=== PATIENT | female | born 1975 | race Caucasian/White ===

== ENCOUNTER 2021-10-24 23:22 | Observation (INO) | payer OTHER, SELFPAY ==
--- NOTE | ~2021-10-24 | CT_ITS ---
EXAMINATION: CT abdomen pelvis w con DATE: 10/25/2021 01:26 INDICATION: Right flank pain. Right lower quadrant abdominal pain. Fever. TECHNIQUE: Computed tomography (CT) of the abdomen and pelvis was performed with 100 mL Omnipaque 350 intravenous contrast. Automated exposure control and iterative reconstruction technique were employe d. The dose-length product was 1466.88 mGy-cm. COMPARISON: None. FINDINGS: The visualized portions of the lung bases demonstrate mild atelectasis on the right. No ple ural effusion. The heart size is normal. No pericardial effusion. There is a small sliding hiatal her becka. The liver demonstrates focal steatosis adjacent to the falciform ligament. There is mild splenom egaly. The pancreas, adrenal glands, and left kidney are normal. There is hypoenhancement in right ki dney, consistent with pyelonephritis. There is a 9 mm cyst versus abscess in right kidney. The append ix is normal. There are no dilated loops of bowel. There is wall thickening in the bladder, consisten t with cystitis. There are no pathologically enlarged lymph nodes. There is no free intraperitoneal f luid. There are fibroids in the uterus. There is severe lower lumbar spondylosis. There is mild thora cic spondylosis. IMPRESSION: 1. Acute right-sided pyelonephritis. 9 mm cyst versus abscess in right kidney. 2. Bladder wall thickening, consistent with cystitis. 3. Mild splenomegaly. Reviewed, dictated and finalized at location A.
[2021-10-24 23:29] VITALS: BP 121/85; PULSE 127; RESP 16; TEMP 37.1; O2SAT 100
[2021-10-24 23:49] LABS: Basophils Absolute Auto 0.1 K/mm3 (0.0-0.1); Basophils Percent Auto 0.5 % (0.2-1.2); Eosinophils Percent Auto 0.3 % (0-4.4); Hematocrit 34.3 % (37.0-47.0); Hemoglobin 10.8 g/dL (12.0-15.0); Immature Granulocyte Absolute 0.07 K/mm3 (0.00-0.031); Immature Granulocyte Percent A 0.7 % (0-0.5); Lymphocytes Absolute Auto 1.42 K/mm3 (0.9-3.2); Lymphocytes Percent Auto 13.5 % (18.3-44.2); Mean Corpuscular HGB Conc 31.5 g/dl (32-36); Mean Corpuscular Hemoglobin 24.6 pg (26-34); Mean Corpuscular Volume 78.1 fl (80-100); Mean Platelet Volume 10.1 fl (7.4-10.4); Monocytes Absolute Auto 1.4 K/mm3 (0.1-0.6); Monocytes Percent Auto 13.2 % (2.6-8.5); Neutrophils Absolute Auto 7.6 K/mm3 (1.3-6.7); Neutrophils Percent Auto 71.8 % (45.5-73.1); Platelet Count Result 342 k/mm3 (150-375); Red Blood Count 4.39 M/mm3 (4.2-5.4); Red Cell Distribution Width 17.2 % (11.5-14.5); White Blood Count 10.5 K/mm3 (4.5-10.0)
[2021-10-24 23:59] LABS: Alanine Aminotransferase 17 U/L (6-35); Albumin Level 3.8 g/dL (3.5-5.1); Alkaline Phosphatase 193 U/L (38-126); Anion Gap 13 mmol/L (8-16); Aspartate Amino Transferase 21 U/L (14-36); Bilirubin,Total 0.7 mg/dL (0.2-1.3); Blood Urea Nitrogen 15 mg/dL (7-17); Calcium 9.5 mg/dL (8.4-10.2); Carbon Dioxide 22 mmol/L (22-30); Chloride 96 mmol/L (98-107); Estimated CRCL calculation 98 ml/min; Estimated Glomerular Filt Rate > 60; Glucose 116 mg/dL (65-110); Potassium 3.4 mmol/L (3.4-5.0); Sodium 131 mmol/L (137-145)
[2021-10-25] LABS: Bacteria Urine 1+ /hpf; Mucus Urine Few /lpf; Squamous Epithelial Cell Urine Many /hpf (Few); WBC Urine >75 /hpf
[2021-10-25 00:13] LABS: Appearance Urine Clear (Clear); Bilirubin Urine 1+ (Negative); Blood Urine 1+ (Negative); Glucose Urine UA Negative (Negative); Ketones Urine Negative (Negative); Leukocyte Esterase Ur 3+ LEU/UL (Negative); Nitrate Urine Negative (Negative); Protein Urine 1+ mg/dL (Negative); Specific Grav Ur 1.015 (1.001-1.035)
[2021-10-25 00:14] LABS: Add Urine Microscopic? YES; Color Urine Dark Yellow (Yellow)
[2021-10-25 01:03] LABS: Lactic Acid Reflex 1.1 mmol/L (0.7-2.0)
[2021-10-25] MEDS: ONDANSETRON INJ 4 MG/2 ML VIAL IV PUSH (01:08)
[2021-10-25] MEDS: SODIUM CHLORIDE 0.9% IV 1,000 ML 999 ML IV CONT ×2 (01:09→02:33)
--- NOTE | 2021-10-25 02:09 | ED.FEMALEGU ---
HPI - Female Genitourinary General Chief complaint: Urogenital-Female Stated complaint: UTI,FLANK PAIN Time Seen by Provider: 10/25/21 00:14 History of Present Illness HPI Narrative: Patient is a 46-year-old female here for evaluation of right-sided low back pain for the past day. Patient states she is having urinary symptoms last week, including urgency and frequency. She did not take any antibiotics for this. Her urinary symptoms improved, but she states over the past several days, she has felt unwell, feverish, and has developed some right flank pain and nausea. Denies any vomiting, diarrhea, constipation. Related Data Allergies Allergy/AdvReac Type Severity Reaction Status Date / Time amoxicillin Allergy Unknown Unknown Verified 10/25/21 00:38 Penicillins Allergy Unknown Unknown Verified 10/25/21 00:38 Review of Systems Review of Systems: Gen.: Reports chills. Denies fevers Eyes: Denies eye pain or visual change ENT: Denies congestion Respiratory: Denies shortness of breath or cough CV: Denies chest pain or palpitations GI: Reports nausea. Denies abdominal pain emesis or diarrhea reports burning and urgency, resolved. Musculoskeletal: Reports right flank pain. Denies back pain or muscle pain Neuro: Denies numbness, tingling, weakness or focal weakness Skin: Denies rash Except as documented, all other systems reviewed and negative [facility] Family History Family History (Updated 11/19/13 @ 07:13 by DOCTOR UNKNOWN) Mother Hypertension Other Family history of malignant neoplasm Exam Narrative: APPEARANCE: Uncomfortable appearing Head: Normocephalic and atraumatic. EYES: PERRLA/EOMI, conjunctivae clear NOSE: No nasal drainage EARS: External ear normal in appearance THROAT: Oropharynx is clear. Mucous membranes are moist. NECK: Supple. No adenopathy, no masses. RESPIRATORY: Airway patent, respirations nonlabored. Clear to auscultation bilaterally, no rales, rhonchi, wheezing. CARDIOVASCULAR: tachycardic. Regular rhythm without murmurs, rubs, or gallops. ABDOMINAL: Right CVA tenderness. Normoactive bowel sounds. Soft, nondistended. No rebound tenderness or guarding. MUSCULOSKELETAL: Extremities are warm and well-perfused. Moves all extremities well. No edema. NEURO: Normal speech. No focal neurologic deficits. SKIN: Skin is warm and dry. No rashes. PSYCHIATRIC: Normal affect/mood. Course Vital Signs Vital signs: Vital Signs Temperature 98.7 F 10/24/21 23:29 Pulse Rate 127 H 10/24/21 23:29 Respiratory Rate 16 10/24/21 23:29 Blood Pressure 121/85 10/24/21 23:29 Pulse Oximetry 100 10/24/21 23:29 Temperature 98.6 F 10/25/21 02:29 Pulse Rate 109 H 10/25/21 02:35 Respiratory Rate 18 10/25/21 02:35 Blood Pressure 126/75 10/25/21 02:35 Pulse Oximetry 100 10/25/21 02:35 MDM - Female Genitourinary MDM Narrative Medical decision making narrative: 46 year old female here for evaluation of right flank pain preceeded by several days of urinary symptoms. She is tachycardic, vital signs otherwise normal; EKG is in sinus tach. She has right CVA tenderness on exam. She has a slight leukocytosis to 10.5, kidney function normal, evidence of UTI on UA with bacteria, WBCs, leuks. Negative lactic. CT scan with evidence of right sided pyelonephritis and cystitis. Given her tachycardia, blood cultures were obtained, she was given 2L fluids in the ED, and started on zosyn. spoke with dr. Montiel who agrees with plan for admission; will obs patient. Patient updated and agreeable to plan. Lab Data Result diagrams: 10/24/21 23:43 10/24/21 23:43 Labs: Lab Results 10/24/21 10/24/21 10/24/21 Range/Units 23:43 23:43 23:43 WBC 10.5 H (4.5-10.0) K/mm3 RBC 4.39 (4.2-5.4) M/mm3 Hgb 10.8 L (12.0-15.0) g/dL Hct 34.3 L (37.0-47.0) % MCV 78.1 L (80-100) fl MCH 24.6 L (26-34) pg MCHC 31.5 L (32-36) g/dl RDW 17.2 H
--- NOTE | 2021-10-25 02:18 | ECG_ITS ---
Measurements Intervals [place] Rate: 104 P: 39 OR: 160 QRS: 39 QRSD: 88 T: 44 QT: 326 QTc: 430 Interpretive Statements SINUS TACHYCARDIA BASELINE ARTIFACT NONSPECIFIC T-WAVE ABNORMALITY BORDERLINE ECG NO PREVIOUS ECG AVAILABLE FOR COMPARISON Electronically Signed On 10-25-2021 12:34:15 CDT by Pipe John M.D.
[2021-10-25 02:29] VITALS: TEMP 37
[2021-10-25 02:35] VITALS: BP 126/75; PULSE 109; RESP 18; O2SAT 100
[2021-10-25] MEDS: ACETAMINOPHEN 325 MG TABLET 650 MG PO (03:15)
[2021-10-25 04:07] LABS: SARS-CoV-2 RNA PCR Negative
[2021-10-25 04:36] VITALS: BP 119/66; PULSE 92; RESP 18; TEMP 36.4; O2SAT 100
[2021-10-25] MEDS: SODIUM CHLORIDE 0.9% IV 1,000 ML 150 ML IV CONT (04:56)
--- NOTE | 2021-10-25 08:26 | PC.NURSE ---
This patient, Demetria Santoro, was admitted to Medical Room 341-01. Patient/family oriented to hospital policies and general routines including ID bracelet, bed and alarms, visiting hours, pain management, procedures, bathroom and other care routines, personal items, smoking policy, room service/diet, and visiting hours. Information on how to activate the Rapid Response Team has been discussed. Patient/Family are encouraged to report perceived risks to care and to ask questions if they do not understand what they are told or what they should do. Patient was brought up on previous shift and day shift RN added an admission note.
--- NOTE | 2021-10-25 10:23 | PM.IMHP ---
H&P: HPI History of Present Illness Date/Time: 10/25/21 10:23 Chief Complaint: Right flank pain Narrative: Date of service: 10/25/2021 Demetria Santoro is a 46-year-old female with a history of depression, anxiety, overactive bladder, GERD, and recent asthma diagnosis who presented to the emergency department on 10/25/2021 with complaints of right-sided flank pain. Over the past week, she developed urinary frequency, dysuria, dark urine, and trouble emptying her bladder. She did not seek evaluation for this but was pretty convinced that she had a urinary tract infection. She felt that her symptoms started to improved but then about 2 days ago she developed a stabbing right-sided flank pain that was constant for several hours. This eventually subsided but she still noticed it if she took a deep breath or moved around. She began feeling achey and had a fever of 104.0 (though she states she took this immediately after being outside in the heat). She reports feeling dehydrated. She did have an episode of nausea and vomiting yesterday but reports this was after eating [employer]. She has not had any subsequent episodes of N/V and is now tolerating her diet. In the ED, she she was tachycardic with heart rate 127, she was afebrile, white blood cell count mildly elevated at 10.5, UA grossly abnormal, additional laboratory workup unremarkable, and CT of the abdomen/ pelvis showed acute right-sided pyelonephritis with 9 mm cyst vs abscess of the right kidney. she is being admitted to the hospitalist service for observation. Supervising physician for this history and physical is Dr. Mo James Review of Systems Review of Systems: All systems reviewed with pertinent positives and negatives as per HPI. Additionally, patient endorses heartburn which is very typical for her. She denies abdominal pain. She denies SOB or wheezing. No chest pain. [facility] Past Medical History Medical History (Updated 10/25/21 @ 10:54 by Janae Mosqueda PA-C) Anxiety Asthma Depression GERD (gastroesophageal reflux disease) Overactive bladder Tachyarrhythmia Tobacco abuse Surgical History Surgical History (Updated 10/25/21 @ 10:47 by Janae Mosqueda PA-C) History of History of tubal ligation Family History Family History (Updated 10/25/21 @ 10:48 by Janae Mosqueda PA-C) Mother Hypertension Father Hypertension Social History Social History (Updated 10/25/21 @ 10:51 by Janae Mosqueda PA-C) Social History: Ms. Santoro lives at home alone. She is independent in her daily activities. She has 3 adult children. She is on disability due to depression. Her primary care provider is Yanira Mendoza NP. She designates her mother, Gila, as her surrogate decision maker. She would like to be a full code. Smoking packs per day: 1 Smoking cigarettes per day: 20.0 Years smoked: 20 Smoking pack-years: 20.00 Smoking status: Current every day smoker Tobacco type: cigarettes Additional smoking assessment comments: Patient cut down to 1/2 ppd 6 months ago Alcohol intake: never Substance use: current Substance use type: marijuana Other substance usage details: 3 times weekly Living arrangements: alone Spiritual care concerns: No Meds Home Medications and Allergies Home Medications Medication Instructions Recorded Confirmed Type albuterol 18 g inhalation PRN 10/25/21 10/25/21 History amitriptyline 75 mg PO DAILY 10/25/21 10/25/21 History bupropion HCl 300 mg PO DAILY 10/25/21 10/25/21 History duloxetine 60 mg PO DAILY 10/25/21 10/25/21 History omeprazole 20 mg PO DAILY 10/25/21 10/25/21 History oxybutynin chloride 5 mg PO DAILY 10/25/21 10/25/21 History propranolol 10 mg PO DAILY 10/25/21 10/25/21 History Allergies Allergy/AdvReac Type Severity Reaction Status Date / Time amoxicillin Allergy Unknown Unknown Verified 10/25/21 00:38 Penicillins Allergy Unknown Unknown Verified 10/25/21 00:3
[2021-10-25 11:29] LABS: Hematocrit 31.2 % (37.0-47.0); Hemoglobin 9.5 g/dL (12.0-15.0); Mean Corpuscular HGB Conc 30.4 g/dl (32-36); Mean Corpuscular Hemoglobin 24.7 pg (26-34); Mean Platelet Volume 10.2 fl (7.4-10.4); Platelet Count Result 286 k/mm3 (150-375); Red Blood Count 3.85 M/mm3 (4.2-5.4); Red Cell Distribution Width 17.3 % (11.5-14.5); White Blood Count 6.1 K/mm3 (4.5-10.0)
[2021-10-25 14:36] VITALS: BP 117/60; PULSE 83; RESP 16; TEMP 36.8; O2SAT 100
[2021-10-25] MEDS: PANTOPRAZOLE 40 MG TABLET PO (20:50)
[2021-10-25] MEDS: DULoxetine HCL 60 MG CAPSULE.DR PO (20:50)
[2021-10-25] MEDS: PROPRANOLOL HCL 10 MG TABLET PO (20:51)
[2021-10-25] MEDS: buPROPion HCL XL (24 HR) 150 MG TABCR 300 MG PO (20:51)
[2021-10-25] MEDS: OXYBUTYNIN CHLORIDE 5 MG TABLET PO (20:51)
[2021-10-25] MEDS: AMITRIPTYLINE HCL 25 MG TABLET 75 MG PO (20:51)
[2021-10-25] MEDS: ACETAMINOPHEN 500 MG TABLET 1000 MG PO (21:31)
[2021-10-25 21:54] VITALS: BP 131/60; PULSE 108; RESP 16; TEMP 36.8; O2SAT 100
[2021-10-26] MEDS: CALCIUM CARBONATE (TUMS) 500 MG (200 MG ELEMENTAL) 400 MG PO (00:11)
[2021-10-26 00:51] LABS: Anion Gap 10 mmol/L (8-16); Blood Urea Nitrogen 14 mg/dL (7-17); Calcium 8.6 mg/dL (8.4-10.2); Carbon Dioxide 26 mmol/L (22-30); Chloride 102 mmol/L (98-107); Estimated CRCL calculation 98 ml/min; Estimated Glomerular Filt Rate > 60; Glucose 85 mg/dL (65-110); Potassium 3.2 mmol/L (3.4-5.0); Sodium 138 mmol/L (137-145)
[2021-10-26 05:50] VITALS: BP 123/78; PULSE 73; RESP 16; TEMP 36.7; O2SAT 100
[2021-10-26 06:32] LABS: Hematocrit 28.6 % (37.0-47.0); Hemoglobin 8.6 g/dL (12.0-15.0); Mean Corpuscular HGB Conc 30.1 g/dl (32-36); Mean Corpuscular Hemoglobin 24.6 pg (26-34); Mean Corpuscular Volume 81.7 fl (80-100); Mean Platelet Volume 10.4 fl (7.4-10.4); Platelet Count Result 266 k/mm3 (150-375); Red Cell Distribution Width 17.3 % (11.5-14.5); White Blood Count 6.7 K/mm3 (4.5-10.0)
[2021-10-26 06:42] LABS: Anion Gap 8 mmol/L (8-16); Blood Urea Nitrogen 13 mg/dL (7-17); Calcium 8.7 mg/dL (8.4-10.2); Carbon Dioxide 23 mmol/L (22-30); Chloride 101 mmol/L (98-107); Estimated CRCL calculation 98 ml/min; Estimated Glomerular Filt Rate > 60; Glucose 92 mg/dL (65-110); Potassium 3.2 mmol/L (3.4-5.0); Sodium 132 mmol/L (137-145)
[2021-10-26] MEDS: FLUTICASONE/SALMETEROL 115-21 MCG INHALER 1 PUFF 2 PUFF INHALATION ×2 (08:49→20:28)
[2021-10-26] MEDS: POTASSIUM CHLORIDE 20 MEQ PACKET (FOR LIQUID) 40 MEQ PO (09:13)
[2021-10-26] MEDS: ENOXAPARIN 40 MG/0.4 ML SYRINGE SUB-Q (09:13)
[2021-10-26 09:14] VITALS: PULSE 73
[2021-10-26] MEDS: PROPRANOLOL HCL 10 MG TABLET PO ×2 (09:14→18:19)
[2021-10-26 14:00] VITALS: BP 103/58; PULSE 74; RESP 18; TEMP 36.6; O2SAT 100
--- NOTE | 2021-10-26 15:42 | PM.IMPN ---
Progress Note: A&P Assessment and Plan (1) Pyelonephritis: Code(s): N12 - Tubulo-interstitial nephritis, not specified as acute or chronic Status: Acute Assessment and Plan: Patient presented with urinary symptoms and right-sided flank pain. CT of abdomen/pelvis showed acute right-sided pyelonephritis with 9 mm cyst vs abscess of the right kidney preliminary urine culture with growth of E coli. Final results and susceptibility report pending. Spoke with [facility]; anticipate susceptibility report will be available tomorrow morning. Plan for discharge on appropriate PO antibiotics. blood cultures pending continue IV Zosyn will need follow up imaging on resolution of infection to evaluate kidney findings. Spoke to RN (Stacy) at her PCP office today to facilitate outpatient follow-up (2) Tobacco abuse: Code(s): Z72.0 - Tobacco use Status: Acute Assessment and Plan: Patient smokes 1/2 ppd patient educated on importance of total tobacco cessation (3) Asthma: Code(s): J45.909 - Unspecified asthma, uncomplicated Status: Acute Assessment and Plan: No acute issues at this time rescue albuterol inhaler as needed resume home symbicort Subjective Date/time seen: 10/26/21 15:42 Interval history: Date of service: 10/26/2021 Demetria Santoro is a 46-year-old female with a history of depression, anxiety, overactive bladder, GERD, and recent asthma diagnosis. She feels better today. States her flank pain has resolved. Denies abdominal pain, nausea, vomiting, fever, or chills. Dysuria has resolved. States her urine is still a bit dark in color. Denies hematuria. Appetite is good. Denies diarrhea. No shortness of breath, wheezing, cough, chest pain. Review of Systems Review of Systems: All systems reviewed & are unremarkable except as noted in HPI and below Exam Narrative: General: well-nourished, well-appearing 46-year-old female, sitting up in bed, comfortable, NARD Neuro: awake, alert and oriented x4, speech clear, no focal neuro deficits noted HEENMT: normocephalic, atraumatic, EOMI, sclerae anicteric Respiratory: clear to auscultation bilaterally, nonlabored breathing Cardio: regular rate, regular rhythm with S1-S2 Abdomen: nondistended, normoactive bowel sounds, soft, nontender to palpation : No CVA tenderness Extremities: no edema, erythema, or tenderness to palpation Skin: no rashes or lesions, warm and dry Psych: appropriate mood and affect, judgment and insight intact Objective Data Vital Signs Vital Signs: Vital Signs - 24 hr 10/25/21 21:54 10/26/21 05:50 10/26/21 09:14 Temperature 98.2 F 98.1 F Pulse Rate 108 H 73 73 Respiratory Rate 16 16 Blood Pressure 131/60 123/78 Pulse Oximetry 100 100 Oxygen Delivery 10/26/21 08:00 10/26/21 14:00 Temperature 97.8 F Pulse Rate 74 Respiratory Rate 18 Blood Pressure 103/58 L Pulse Oximetry 100 Oxygen Delivery Room Air Intake/Output Intake/Output: Intake & Output 10/23/21 10/24/21 10/25/21 10/26/21 23:59 23:59 23:59 23:59 Intake Total 4240 630 Output Total 500 800 Balance 3740 -170 Meds/Results Medications: Active Medications Generic Name Dose Route Start Last Admin Trade Name Freq PRN Reason Stop Dose Admin Acetaminophen 325 mg 10/25/21 03:59 Acetaminophen 325 Mg Tablet PO Q6H PRN Mild Pain (1-3) or Fever Acetaminophen 1,000 mg 10/25/21 20:14 10/25/21 21:31 Acetaminophen 500 Mg Tablet PO 1,000 mg Q6H PRN Administration Mild Pain (1-3) or Fever Albuterol 2 puff 10/26/21 00:55 Albuterol Sulfate (*Sp) Aerosol 1 Puff INHALATION Q4-6H PRN Shortness Of Breath Amitriptyline HCl 75 mg 10/25/21 21:00 10/25/21 20:51 Amitriptyline Hcl 25 Mg Tablet PO 75 mg HS ENID Administration Bupropion HCl 300 mg 10/25/21 21:00 10/25/21 20:51 Bupropion Hcl Xl (24 Hr) 150 Mg Tabcr PO 3
[2021-10-26 18:19] VITALS: PULSE 74
[2021-10-26] MEDS: AMITRIPTYLINE HCL 25 MG TABLET 75 MG PO (19:59)
[2021-10-26] MEDS: PANTOPRAZOLE 40 MG TABLET PO (20:00)
[2021-10-26] MEDS: OXYBUTYNIN CHLORIDE 5 MG TABLET PO (20:00)
[2021-10-26] MEDS: DULoxetine HCL 60 MG CAPSULE.DR PO (20:00)
[2021-10-26] MEDS: buPROPion HCL XL (24 HR) 150 MG TABCR 300 MG PO (20:01)
[2021-10-26 20:26] VITALS: BP 118/64; PULSE 80; RESP 16; TEMP 36.6; O2SAT 99
[2021-10-26 20:30] VITALS: O2SAT 97
[2021-10-27 05:06] VITALS: BP 112/54; PULSE 73; RESP 16; TEMP 36.7; O2SAT 97
[2021-10-27 05:49] LABS: Hematocrit 29.2 % (37.0-47.0); Hemoglobin 8.7 g/dL (12.0-15.0); Mean Corpuscular HGB Conc 29.8 g/dl (32-36); Mean Corpuscular Hemoglobin 24.6 pg (26-34); Mean Corpuscular Volume 82.7 fl (80-100); Mean Platelet Volume 10.4 fl (7.4-10.4); Platelet Count Result 300 k/mm3 (150-375); Red Blood Count 3.53 M/mm3 (4.2-5.4); Red Cell Distribution Width 17.4 % (11.5-14.5); White Blood Count 6.6 K/mm3 (4.5-10.0)
[2021-10-27 06:08] LABS: Anion Gap 9 mmol/L (8-16); Blood Urea Nitrogen 14 mg/dL (7-17); Calcium 8.7 mg/dL (8.4-10.2); Carbon Dioxide 22 mmol/L (22-30); Chloride 103 mmol/L (98-107); Estimated CRCL calculation 111 ml/min; Estimated Glomerular Filt Rate > 60; Glucose 83 mg/dL (65-110); Magnesium 2.1 mg/dL (1.6-2.3); Potassium 3.7 mmol/L (3.4-5.0); Sodium 134 mmol/L (137-145)
[2021-10-27 09:18] VITALS: PULSE 73
[2021-10-27] MEDS: ENOXAPARIN 40 MG/0.4 ML SYRINGE SUB-Q (09:18)
[2021-10-27] MEDS: PROPRANOLOL HCL 10 MG TABLET PO (09:18)
--- NOTE | 2021-10-27 09:51 | PM.DS ---
DS: Admitting Diagnosis Discharge Date 10/27/2021 Admitting Diagnosis Pyelonephritis DS: Discharge Diagnosis Discharge Diagnosis (1) Pyelonephritis: Code(s): N12 - Tubulo-interstitial nephritis, not specified as acute or chronic Status: Acute Assessment and Plan: Patient presented with urinary symptoms and right-sided flank pain. CT of abdomen/pelvis showed acute right-sided pyelonephritis with 9 mm cyst vs abscess of the right kidney patient started on IV Zosyn urine culture with growth of >100k E coli susceptible to Zosyn transition to p.o. cefdinir based on susceptibility report for total of 10 days of antibiotic therapy case discussed with CHARLES Jarvis preliminary blood cultures are negative to date. Final cultures will be monitored will need follow up imaging on resolution of infection to evaluate kidney findings. Spoke to RN (Stacy) at her PCP office on 10/26/2021 to facilitate outpatient follow-up. Patient to be seen in 7-10 days (2) Tobacco abuse: Code(s): Z72.0 - Tobacco use Status: Acute Assessment and Plan: Patient smokes 1/2 ppd educated on smoking cessation for 3 minutes. Patient verbalized understanding and is motivated to quit smoking (3) Asthma: Code(s): J45.909 - Unspecified asthma, uncomplicated Status: Acute Assessment and Plan: No acute issues rescue albuterol inhaler as needed continue home symbicort DS: Summary Hospital Course Hospital Course: Date of admission: 10/25/2021 Date of discharge: 10/27/2021 Demetria Santoro is a 46-year-old female with a history of depression, anxiety, overactive bladder, GERD, and recent asthma diagnosis who presented to the emergency department on 10/25/2021 with complaints of right-sided flank pain after experiencing urinary symptoms for several days prior to admission. In the ED,? she she was tachycardic with heart rate 127, she was afebrile, white blood cell count mildly elevated at 10.5, UA grossly abnormal, additional laboratory workup unremarkable, and CT of the abdomen/ pelvis showed acute right-sided pyelonephritis with 9 mm cyst vs abscess of the right kidney.? She was admitted to the hospitalist service for further evaluation and management. Please see above for further details. She had symptomatic improvement following IV antibiotics. Urine culture revealed growth of E coli which was susceptible to patient's IV antibiotic regimen. She will continue with p.o. cefdinir based on susceptibility report to complete a total of 10 days of antibiotic therapy. The case was discussed with Infectious Disease PharmD. Given her abnormal CT findings suggestive of renal cyst vs abscess, she will need repeat imaging following course of treatment for further evaluation. I did speak with her primary care provider's office on 10/26/2021 and they will follow-up on these findings. Patient was educated on smoking cessation. She was feeling much improved and was eager for discharge home. Given her overall improvement, she was determined to no longer require inpatient care and was discharged in hemodynamically stable condition on 10/27/2021. Discussed with the patient worrisome signs and symptoms for which to return and she was educated on her medications. She will follow-up with her PCP within 1 week. Status at Discharge Functional status at discharge: independent ambulation Overall status at discharge: patient is back to baseline Time Spent with Patient Time attestation: Total time spent providing and/or coordinating discharge services: 38 minutes Time spent: Greater than 30 minutes Exam Narrative: General: well-nourished, well-appearing 46-year-old female, sitting up in bed, comfortable, NARD Neuro: awake, alert and oriented x4, speech clear, no focal neuro deficits noted HEENMT: normocephalic, atraumatic, EOMI, sclerae anicteric Respiratory: clear to auscultation bilaterally, nonlab
[2021-10-27] MEDS: FLUTICASONE/SALMETEROL 115-21 MCG INHALER 1 PUFF 2 PUFF INHALATION (09:59)
== END 2021-10-27 14:08 | disposition home or self-care (01) ==
LOC: ANHED 10-25 02:48 → ANH3MED 10-25 03:58
PROVIDERS: Physician Assistant; Admitting Provider Internal Medicine; Emergency Provider Emergency Medicine; PCP Registered Nurse; Visit Provider Family Medicine
DX: N12 Tubulo-interstitial nephritis, not specified as acute or chronic (principal); F17.210 Nicotine dependence, cigarettes, uncomplicated; J45.909 Unspecified asthma, uncomplicated; F32.A Depression, unspecified; F41.9 Anxiety disorder, unspecified; N32.81 Overactive bladder; K21.9 Gastro-esophageal reflux disease without esophagitis; R16.1 Splenomegaly, not elsewhere classified; R00.0 Tachycardia, unspecified; F12.90 Cannabis use, unspecified, uncomplicated; Z20.822 Contact with and (suspected) exposure to COVID-19; Z79.51 Long term (current) use of inhaled steroids; Z79.899 Other long term (current) drug therapy
CPT/HCPCS: 36415; 74177; 80048; 80053; 81001; 81025; 83605; 83735; 85025; 85027; 87040; 87077; 87086; 87186; 93005; 94640; 96361; 96365; 96372; 96375; 99285; A9270; C9803; G0378; G0379; J1650; J2405; J2543; J7030; Q9967; U0003; U0005